=== PATIENT | female | born 1950 | race Hispanic/Latino ===

== ENCOUNTER → 2023-01-14 | Outpatient (CLI) | payer OTHER | END | disposition home or self-care (01) | LOC: RAH 08:46 | PROVIDERS: ATTEND Internal Medicine | DX: Z12.31 Encounter for screening mammogram for malignant neoplasm of breast (principal) | CPT/HCPCS: 77067 ==

== ENCOUNTER → 2023-07-11 | Outpatient (CLI) | payer OTHER, MEDICARE | END | disposition home or self-care (01) | LOC: SHCH 10:22 | PROVIDERS: ATTEND Internal Medicine Cardiovascular Disease | DX: I87.2 Venous insufficiency (chronic) (peripheral) (principal) | CPT/HCPCS: 93970 ==

== ENCOUNTER → 2023-07-20 | Outpatient (CLI) | payer OTHER, MEDICARE | END | disposition home or self-care (01) | LOC: RAH 14:26 | PROVIDERS: ATTEND Internal Medicine Cardiovascular Disease | DX: I51.7 Cardiomegaly (principal); R01.1 Cardiac murmur, unspecified; I51.89 Other ill-defined heart diseases; E11.9 Type 2 diabetes mellitus without complications; E78.00 Pure hypercholesterolemia, unspecified | CPT/HCPCS: 93306 ==

== ENCOUNTER → 2024-01-08 | Outpatient (CLI) | payer OTHER, MEDICARE ==
[2024-01-08] MEDS: REGADENOSON 0.4 MG/5 ML PF SYG IVP ONE (13:56)
== END | disposition home or self-care (01) ==
LOC: SHCH 08:31
PROVIDERS: ATTEND Internal Medicine Cardiovascular Disease
DX: R00.0 Tachycardia, unspecified (principal); R06.09 Other forms of dyspnea
CPT/HCPCS: 78452; 96374; 93017; J2785; A9500 ×2

== ENCOUNTER → 2024-06-23 | Outpatient (CLI) | payer OTHER, MEDICARE | END | disposition home or self-care (01) | LOC: SHCH 11:25 | PROVIDERS: ATTEND Internal Medicine Cardiovascular Disease | DX: I73.9 Peripheral vascular disease, unspecified (principal) | CPT/HCPCS: 93925 ==

== ENCOUNTER → 2024-10-20 | Outpatient (CLI) | payer OTHER, MEDICARE ==
--- NOTE | 2024-10-24 09:01 | HMCSR ---
APPROVED REPORT Bilateral Lower Extremity Venous Study for DVT., Venous Competence. Indications i87.2 Vein Imaging CFV (R): Normal flow, augmentation and compression. No evidence of DVT. 9.8mm 1328ms of reflux. SFJ (R): Normal flow, augmentation and compression. No evidence of DVT. FEM (R): Normal flow, augmentation and compression. No evidence of DVT. POP (R): Normal flow, augmentation and compression. No evidence of DVT. DFV (R): Normal flow, augmentation and compression. No evidence of DVT. PTV (R): Normal flow, augmentation and compression. No evidence of DVT. Peroneals (R): Normal flow, augmentation and compression. No evidence of DVT. CFV (L): Normal flow, augmentation and compression. No evidence of DVT. 10.7mm 53908lc of reflux. SFJ (L): Normal flow, augmentation and compression. No evidence of DVT. FEM (L): Normal flow, augmentation and compression. No evidence of DVT. POP (L): Normal flow, augmentation and compression. No evidence of DVT. DFV (L): Normal flow, augmentation and compression. No evidence of DVT. PTV (L): Normal flow, augmentation and compression. No evidence of DVT. Peroneals (L): Normal flow, augmentation and compression. No evidence of DVT. Technologist Impression Deep veins of bilateral lower extremities appear patent and compressible without thrombus. RCFV and LCFV reflux seen Superficial venous insufficiency seen in RGSV AND LGSV, LSSV. RGSV Junction 5.8mm 2842ms thigh 5.4mm 3242ms knee 4.4mm 5117ms calf 3.7mm 1867ms (cluster of veins noted) RSSV Prox 2.4mm 0.0ms Mid 2.5mm 0.0ms LGSV Junction 5.8mm 0.0ms thigh 2.7mm 1175ms knee 3.1mm 1883ms Calf 2.8mm 0.0ms LSSV Prox 2.1mm 825ms Mid 1.9mm 750ms Conclusion Severe superficial venous reflux of bilateral greater saphenous veins and left smaller saphenous vein greater than 500 milliseconds Severe deep venous reflux noted in bilateral common femoral veins Consider formal venography with IVUS if clinically indicated Conclusion Severe superficial venous reflux of bilateral greater saphenous veins and left smaller saphenous vein greater than 500 milliseconds Severe deep venous reflux noted in bilateral common femoral veins Consider formal venography with IVUS if clinically indicated
== END | disposition home or self-care (01) ==
LOC: SHCH 13:37
PROVIDERS: ATTEND Internal Medicine Cardiovascular Disease
DX: I87.2 Venous insufficiency (chronic) (peripheral) (principal); I87.1 Compression of vein
CPT/HCPCS: 93970

== ENCOUNTER → 2024-11-14 | Outpatient (CLI) | payer OTHER, MEDICARE | END | disposition home or self-care (01) | LOC: SHCH 10:07 | PROVIDERS: ATTEND Internal Medicine Cardiovascular Disease | DX: Z09 Encounter for follow-up examination after completed treatment for conditions other than malignant neoplasm (principal); I87.2 Venous insufficiency (chronic) (peripheral) | CPT/HCPCS: 93971 ==

== ENCOUNTER → 2024-12-12 | Outpatient (CLI) | payer OTHER, MEDICARE ==
--- NOTE | 2024-12-18 14:13 | HMCSR ---
APPROVED REPORT Right Lower Extremity Venous Study for DVT., Venous Competence. Indications F/U RT. PTV thrombus / s/p vari RT. GSV 11-11-24 Vein Imaging CFV (R): Normal flow, augmentation and compression. No evidence of DVT. 11.3mm. 133ms of Reflux. SFJ (R): Normal flow, augmentation and compression. No evidence of DVT. FEM (R): Normal flow, augmentation and compression. No evidence of DVT. POP (R): Normal flow, augmentation and compression. No evidence of DVT. DFV (R): Normal flow, augmentation and compression. No evidence of DVT. PTV (R): Normal flow, augmentation and compression. No evidence of DVT. GSV (R): Peroneals (R): Normal flow, augmentation and compression. No evidence of DVT. Technologist Impression Deep veins of RLE appear patent and compressible without thrombus. RT. PTV and Barbie V. are compressible with color flow. (Prior on 11-14-24) Superficial venous insuffuciency seen at RGSV junction S/P Vari RGSV RGSV junction 6.6mm 1067ms Mid thigh -- Distal calf appears closed. Cluster of veins at Knee are partially occluded. RSSV Prox 1.7mm 0.0ms Mid 2.2mm 0.0ms Conclusion No evidence of right lower extremity DVT or thrombus Previously treated greater saphenous vein with the ablation noted Conclusion No evidence of right lower extremity DVT or thrombus Previously treated greater saphenous vein with the ablation noted
== END | disposition home or self-care (01) ==
LOC: SHCH 09:10
PROVIDERS: ATTEND Internal Medicine Cardiovascular Disease
DX: I87.2 Venous insufficiency (chronic) (peripheral) (principal); I82.402 Acute embolism and thrombosis of unspecified deep veins of left lower extremity; Z03.89 Encounter for observation for other suspected diseases and conditions ruled out
CPT/HCPCS: 93971

== ENCOUNTER → 2025-01-09 | Outpatient (CLI) | payer OTHER, MEDICARE | END | disposition home or self-care (01) | LOC: SHCH 13:19 | PROVIDERS: ATTEND Internal Medicine Cardiovascular Disease | DX: Z09 Encounter for follow-up examination after completed treatment for conditions other than malignant neoplasm (principal); I87.2 Venous insufficiency (chronic) (peripheral) | CPT/HCPCS: 93971 ==

== ENCOUNTER → 2025-01-17 | Outpatient (CLI) | payer OTHER, MEDICARE ==
--- NOTE | 2025-01-17 12:07 | HMCIMG ---
CT ABD/PEL WO CON RENAL/APPY HISTORY: Hematuria COMPARISON: None TECHNIQUE: Multiple sequential axial images of the abdomen and pelvis were obtained from the dome of the diaphragm through symphysis pubis. Patient was not given contrast through intravenous route. Oral contrast was not given. FINDINGS: No pleural effusion is seen bilaterally. There is no evidence of parenchymal disease or pulmonary nodule of the visualized lower lungs. Degenerative changes of the thoracolumbar spine are present. The heart is not enlarged. Liver measures 18 cm. Spleen measured 12 cm. Postcholecystectomy changes are seen. The liver, spleen, adrenal glands and pancreas are unremarkable. There is no evidence of hydronephrosis bilaterally. No evidence of renal stone is seen. Fecal material is seen in the colon. There are normal size retroperitoneal and mesenteric lymph nodes. No ascites is seen. Atherosclerotic changes are present. Pelvic sidewalls are symmetric bilaterally. Bladder is well distended without wall thickening. IMPRESSION: 1. No hydronephrosis is seen. No definite CT evidence of renal stone is seen. Fecal material in the colon. CT was performed with one or more following dose reduction techniques: automated exposure control, adjustment of the mA and kv according to patient's size, or use of a iterative reconstruction technique.
== END | disposition home or self-care (01) ==
LOC: RAH 10:58
PROVIDERS: ATTEND Internal Medicine
DX: M47.895 Other spondylosis, thoracolumbar region (principal); I70.8 Atherosclerosis of other arteries; K56.41 Fecal impaction; R31.9 Hematuria, unspecified
CPT/HCPCS: 74176